=== PATIENT | male | born 1985 | race African-American/Black ===

== ENCOUNTER 2016-09-03 16:37 | Emergency (ER) | payer SELFPAY ==
[~2016-09-03] VITALS: Ht 193 cm; Wt 131.5 kg
== END 2016-09-03 17:14 | disposition home or self-care (01) ==
LOC: CED 16:37 → CFTX 16:37
DX: H60.92 Unspecified otitis externa, left ear (principal); I10 Essential (primary) hypertension
CPT/HCPCS: 99282